=== PATIENT | female | born 1955 | race Caucasian/White ===

== ENCOUNTER 2017-09-14 10:19 | Emergency (ER) | payer BC ==
[2017-09-14] MEDS ORDERED: NS 0.9% 1000 ML*IV.FLUID IV ONE (11:23)
[2017-09-14] MEDS ORDERED: Clindamycin 900 MG IVPREMIX(* 900 MG/50 ML SDV IV ONE (11:24)
[2017-09-14] MEDS ORDERED: Iodixanol* (CONTRAST) 320 MG/ML 100 ML SDV IV ONE (11:32)
[2017-09-14 11:51] LABS: ABS Basophils 0 10^3/ul (0-0.2); ABS Eosinophils 0.1 10^3/ul (0-0.6); ABS Lymphocytes 0.2 10^3/ul (1.0-4.8); ABS Monocytes 0.6 10^3/ul (0-0.8); ABS Neutrophils 4.6 10^3/ul (1.5-7.7); ABS Nucleated RBC 0 10^3/ul; Eosinophil % 1.5 % (0-6); Hematocrit 28 % (35-47); Hemoglobin 9.4 g/dl (12.0-16.0); Lymphocyte % 2.9 % (25-47); Mean Corpuscular HGB Conc 34 g/dl (31-36); Mean Corpuscular Hemoglobin 30 pg (27-31); Mean Corpuscular Volume 89 fL (80-97); Mean Platelet Volume 6.9 um3 (7.4-10.4); Nucleated Red Blood Cells % 0; Platelet Count 245 10^3/ul (150-450); Red Blood Count 3.13 10^6/ul (4.00-5.40); Red Cell Distribution Width 16 % (10.5-15); White Blood Count 5.5 10^3/ul (3.5-10.8)
--- NOTE | 2017-09-14 12:08 | RAD ---
HISTORY: left neck swelling COMPARISONS: None TECHNIQUE: Multiple contiguous axial CT scans were obtained of the neck after the administration of nonionic intravenous contrast, with coronal and sagittal multiplanar reformations. FINDINGS: BRAIN AND ORBITS: Incidentally noted is a scleral calcification along the right superior temporal globe. PARANASAL SINUSES: There is a mucous retention cyst versus polypoid mucosal thickening of the left maxillary sinus. SALIVARY GLANDS: There is mild asymmetry of the left parotid gland which is enlarged compared to the right. There is no appreciable salivary ductal dilatation. There is stranding of adjacent fat with thickening of the platysma fascia. NASAL CAVITY/NASOPHARYNX: The nasal cavity and nasopharynx are normal. ORAL CAVITY/OROPHARYNX: There is mucosal thickening of the base of the tongue in the lateral oropharyngeal mucosa. There is inflammatory change of the perinephric space on the left. LARYNGEAL APPARATUS/HYPOPHARYNX: The laryngeal apparatus and hypopharynx are normal. UPPER AIRWAY/UPPER ESOPHAGUS: The visualized upper airway and esophagus are normal. LUNG APICES: The lung apices are clear. THYROID GLAND: The thyroid gland is normal. LYMPH NODES: There are scattered small, less than 1 cm short axis, lymph nodes noted along the anterior and posterior cervical chain. There is no lymphadenopathy by size criteria. VASCULATURE: There is calcification of the carotid bifurcations. BONES AND SOFT TISSUES: Degenerative changes are noted. As noted above, there is thickening of the platysma fascia along the left face with stranding of the subcutis fat. OTHER: None. IMPRESSION: 1. THERE IS ASYMMETRIC ENLARGEMENT OF THE LEFT PAROTID GLAND WITH ADJACENT INFLAMMATORY CHANGE CONSISTENT WITH CELLULITIS, POSSIBLY SECONDARY TO PAROTIDITIS. THE EDEMA EXTENDS INTO THE PARAPHARYNGEAL SPACE AND LATERAL OROPHARYNGEAL MUCOSA. THERE IS NO LOCULATED FLUID COLLECTION TO SUGGEST ABSCESS. 2. THERE ARE SCATTERED SUBCENTIMETER SHORT AXIS LYMPH NODES WITHOUT LYMPHADENOPATHY BY SIZE CRITERIA. 3. INCIDENTALLY NOTED IS SCLERAL CALCIFICATION OF THE RIGHT GLOBE.
[2017-09-14 12:10] LABS: INR 1.06 (0.77-1.02)
[2017-09-14 12:16] LABS: EGFR Non-African American 43.5 (>60)
[2017-09-14] MEDS ORDERED: Ciprofloxacin 400MG IVPREMIX(* 400 MG/200 ML BAG IVPB ONE (13:17)
[2017-09-14] MEDS ORDERED: Vancomycin(*) 1,000 MG in NS 0.9% 250 ML* 250 ML IVPB ONE (13:18)
[2017-09-14] MEDS ORDERED: HYDROcodone/ACETAMIN 5-325 MG* 1 TAB PO ONE (14:23)
[2017-09-14] MEDS ORDERED: Ciprofloxacin TAB* 500 MG PO ONE (15:10)
--- NOTE | 2017-09-14 15:15 | ED ---
Tim Beck Simon scribed for Juan José Ruth MD on 09/14/17 at 1238 . Neck Pain - HPI Summary HPI Summary: This patient is a 62 year old F presenting to [facility] accompanied by daughter with a chief complaint of left sided neck swelling since yesterday afternoon. Endorses pain in swollen area, dysphagia, and nausea. She denies fever, chills, ear pain, and abd pain, or any recent CP. Her PCP is Dr. Bartlett, Dr. Long is her oncologist doing her stomach radiation therapy. PMHx salivary gland infections. - History of Current Complaint Chief Complaint: EDNeckComplaint Stated Complaint: FACIAL SWELLING Time Seen by Provider: 09/14/17 11:11 Hx Obtained From: Patient Onset/Duration Of Injury/Symptoms: Hours Mechanism Of Injury: No Known Trauma Timing: Constant, Lasting Hours Onset/Duration: Started hours ago Severity Initially: Moderate Severity Currently: Moderate Pain Intensity: 7 Pain Scale Used: 0-10 Numeric Aggravating Factors: Other: - swallowing Alleviating Factors: Nothing Associated Signs & Symptoms: Positive: Swelling, Redness. Negative: Fever - Allergies/Home Medications Allergies/Adverse Reactions: Allergies Allergy/AdvReac Type Severity Reaction Status Date / Time No Known Allergies Allergy Verified 09/14/17 10:24 Home Medications: Home Medications Atorvastatin* [Lipitor*] 40 mg PO DAILY 09/14/17 [History Confirmed 09/14/17] LORazepam TAB(*) [Ativan 0.5 MG TAB (*)] 0.5 mg PO Q8H PRN 09/14/17 [History Confirmed 09/14/17] Metoprolol Tartrate TAB* [Lopressor TAB*] 50 mg PO BID 09/14/17 [History Confirmed 09/14/17] Nortriptyline CAP* [Pamelor CAP*] 50 mg PO DAILY 09/14/17 [History Confirmed ] Omeprazole CAP* [Prilosec CAP* 20 MG] 20 mg PO DAILY 09/14/17 [History Confirmed 09/14/17] Prochlorperazine TAB* [Compazine Tab*] 10 mg PO Q6H PRN 09/14/17 [History Confirmed 09/14/17] Verapamil SR TAB* [Calan Sr TAB*] 240 mg PO DAILY 09/14/17 [History Confirmed ] PMH/Surg Hx/FS Hx/Imm Hx Respiratory History: Denies: Other Respiratory Problems/Disorders GI History: Reports: Other GI Disorders - Sarcoma lower abd History: Reports: Other Problems/Disorders - bladder cancer, ovarian cancer Sensory History: Denies: Hx Legally Blind, Hx Deafness Opthamlomology History: Denies: Hx Legally Blind EENT History: Denies: Hx Deafness - Cancer History Cancer Type, 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 Negative: Dental Pain, Ear Ache Negative: Chest Pain Positive: Nausea. Negative: Abdominal Pain Positive: Edema - left mandible below angle., Other - left mandible All Other Systems Reviewed And Are Negative: Yes Physical Exam - Summary Physical Exam Summary: General: ill-appearing, no pain distress Skin: warm, color reflects adequate perfusion, dry Head: normal Eyes: EOMI, PHILLIP ENT: left ear cerumen impaction, right TM normal, oropharynx open, uvula midline , teeth non-tender Neck: swelling below angle of left mandible, firm and TTP with some overlying erythema Respiratory: CTA, breath sounds present Cardiovascular: tachycardic Abdomen: soft, nontender Bowel: present Musculoskeletal: normal, strength/ROM intact Neurological: sensory/motor intact, A&O x3 Psychological: affect/mood appropriate Triage Information Reviewed: Yes Vital Signs On Initial Exam: Initial Vitals Temp Pulse Resp BP Pulse Ox 98.7 F 116 16 123/70 98 09/14/17 10:20 09/14/17 10:20 09/14/17 10:20 09/14/17 10:20 09/14/17 10:20 Vital Signs Reviewed: Yes Diagnostics - Vital Signs Vital Signs Temp Pulse Resp BP Pulse Ox 09/14/17 10:20 98.7 F 116 16 123/70 98 - Laboratory Lab Results: Lab Results 09/14/17 09/14/17 09/14/17 Range/Units 11:36 11:36 11:36 WBC 5.5 (3.5-10.8) 10^3/ul RBC 3.13 L (4.00-5.40) 10^6/ul Hgb 9.4 L (12.0-16.0) g/dl Hct 28 L (35-47) % MCV 89 (80-97) fL MCH 30 (27-31) pg MCHC 34 (31-36) g/dl RDW 16 H (10.5-15) % Plt Count 245 (150-450) 10^3/ul MPV 6.9 L (7.4-10.4) um3 Neut % (Auto) 83.8 H (38-83) % Lymph % (Auto) 2.9 L (25-47) % Lynn % (Auto) 11.5 H (0-7) % Eos % (Auto) 1.5 (0-6) % Baso % (Auto) 0.3 (0-2) % Absolute Neuts (auto) 4.6 (1.5-7.7) 10^3/ul Absolute Lymphs (auto) 0.2 L (1.0-4.8) 10^3/ul Absolute Monos (auto) 0.6 (0-0.8) 10^3/ul Absolute Eos (auto) 0.1 (0-0.6) 10^3/ul Absolute Basos (auto) 0 (0-0.2) 10^3/ul Absolute Nucleated RBC 0 10^3/ul Nucleated RBC % 0 INR (Anticoag Therapy) 1.06 H (0.77-1.02) APTT 26.7 (26.0-36.3) seconds Sodium 133 L (135-145) mmol/L Potassium 3.8 (3.5-5.0) mmol/L Chloride 102 (101-111) mmol/L Carbon Dioxide 22 (22-32) mmol/L Anion Gap 9 (2-11) mmol/L BUN 21 (6-24) mg/dL Creatinine 1.24 H (0.51-0.95) mg/dL Est GFR ( Amer) 56.0 (>60) Est GFR (Non-Af Amer) 43.5 (>60) BUN/Creatinine Ratio 16.9 (8-20) Glucose 108 H (70-100) mg/dL Lactic Acid (0.5-2.0) mmol/L Calcium 8.7 (8.6-10.3) mg/dL Total Bilirubin 0.20 (0.2-1.0) mg/dL AST 8 L (13-39) U/L ALT 5 L (7-52) U/L Alkaline Phosphatase 82 (34-104) U/L Troponin I 0.08 H* (<0.04) ng/mL C-Reactive Protein 84.41 H (<8.01) mg/L B-Natriuretic Peptide ( - 100) pg/mL Total Protein 5.7 L (6.4-8.9) g/dL Albumin 2.7 L (3.2-5.2) g/dL Globulin 3.0 (2-4) g/dL Albumin/Globulin Ratio 0.9 L (1-3) 09/14/17 09/14/17 09/14/17 Range/Units 11:36 11:36 14:03 WBC (3.5-10.8) 10^3/ul RBC (4.00-5.40) 10^6/ul Hgb (12.0-16.0) g/dl Hct (35-47) % MCV (80-97) fL MCH (27-31) pg MCHC (31-36) g/dl RDW (10.5-15) % Plt Count (150-450) 10^3/ul MPV (7.4-10.4) um3 Neut % (Auto) (38-83) % Lymph % (Auto) (25-47) % Lynn % (Auto) (0-7) % Eos % (Auto) (0-6) % Baso % (Auto) (0-2) % Absolute Neuts (auto) (1.5-7.7) 10^3/ul Absolute Lymphs (auto) (1.0-4.8) 10^3/ul Absolute Monos (auto) (0-0.8) 10^3/ul Absolute Eos (auto) (0-0.6) 10^3/ul Absolute Basos (auto) (0-0.2) 10^3/ul Absolute Nucleated RBC 10^3/ul Nucleated RBC % INR (Anticoag Therapy) (0.77-1.02) APTT (26.0-36.3) seconds Sodium (135-145) mmol/L Potassium (3.5-5.0) mmol/L Chloride (101-111) mmol/L Carbon Dioxide (22-32) mmol/L Anion Gap (2-11) mmol/L BUN (6-24) mg/dL Creatinine (0.51-0.95) mg/dL Est GFR ( Amer) (>60) Est GFR (Non-Af Amer) (>60) BUN/Creatinine Ratio (8-20) Glucose (70-100) mg/dL Lactic Acid 0.7 (0.5-2.0) mmol/L Calcium (8.6-10.3) mg/dL Total Bilirubin (0.2-1.0) mg/dL AST (13-39) U/L ALT (7-52) U/L Alkaline Phosphatase (34-104) U/L Troponin I 0.07 H* (<0.04) ng/mL C-Reactive Protein (<8.01) mg/L B-Natriuretic Peptide 71 ( - 100) pg/mL Total Protein (6.4-8.9) g/dL Albumin (3.2-5.2) g/dL Globulin (2-4) g/dL Albumin/Globulin Ratio (1-3) Result Diagrams: 09/14/17 11:36 09/14/17 11:36 Lab Statement: Any lab studies that have been ordered have been reviewed, and results considered in the medical decision making process. - CT neck CT Interpretation: Positive (See Comments) CT Interpretation Completed By: Radiologist - 1. THERE IS ASYMMETRIC ENLARGEMENT OF THE LEFT PAROTID GLAND WITH ADJACENT INFLAMMATORY CHANGE CONSISTENT WITH CELLULITIS, POSSIBLY SECONDARY TO PAROTIDITIS. THE EDEMA EXTENDS INTO THE PARAPHARYNGEAL SPACE AND LATERAL OROPHARYNGEAL MUCOSA. THERE IS NO LOCULATED FLUID COLLECTION TO SUGGEST ABSCESS. 2. THERE ARE SCATTERED SUBCENTIMETER SHORT AXIS LYMPH NODES WITHOUT LYMPHADENOPATHY BY SIZE CRITERIA. 3. INCIDENTALLY NOTED IS SCLERAL CALCIFICATION OF THE RIGHT GLOBE. Dr. Ventura has reviewed this report. - EKG 1130 Cardiac Rate: NL - 77 EKG Rhythm: Sinus Rhythm ST Segment: Normal Ectopy: None EKG Interpretation: prolonged IA 220 Re-Evaluation - Re-Evaluation First Eval Re-Evaluation Time: 13:45 Change: Unchanged Comment: re-check, asked about, pt denied any recent CP. Second Eval Re-Evaluation Time: 14:56 Change: Improved Comment: Discussed improving sx, discharge. Neck Course/Dx - Course Course Of Treatment: Medications reviewed. Allergies noted. DISCUSSED RESULT WITH THE PATIENT AND HER DAUGHTER. DENIED ANY CHEST PAIN. RECHECK TROPONIN DECREASED. DISCUSSED WITH DR TY, ENT. DISCUSSED ADMISSION [facility] OUT PATIENT. THE PATIENT PREFERS OUT PATIENT TREATMENT; SHE AGREES TO RETURN IF WORSE. - Diagnoses Provider Diagnoses: Parotitis, acute - Physician Notifications Discussed Care Of Patient With: Mani Downing Time Discussed With Above Provider: 13:39 Instructed by Provider To: Other - Discussed labs, vitals, IV abx vs PO, based on clinical picture for admit vs outpatient tx. Discharge - Sign-Out/Discharge Documenting (check all that apply): Discharge/Admit/Transfer - Discharge Plan Condition: Stable Disposition: HOME Prescriptions: Ciprofloxacin TAB* [Cipro 500 MG TAB*] 500 mg PO BID #20 tab Clindamycin HCl 450 mg PO TID #90 capsule Patient Education Materials: Sialoadenitis (ED) Referrals: Thelma Bartlett DO [Primary Care Provider] - Additional Instructions: FOLLOW UP WITH YOUR DOCTOR. RETURN TO THE EMERGENCY DEPARTMENT FOR ANY WORSENING OF YOUR CONDITION; FEVER, YOU FEEL ILL OR QUESTIONS OR CONCERNS. - Billing Disposition and Condition Condition: STABLE Disposition: Home The documentation as recorded by the Tim serna Simon accurately reflects the service I personally performed and the decisions made by me, Juan José Ruth MD.
[2017-09-14 15:26] VITALS: BP 123/51
== END 2017-09-14 15:26 | disposition home or self-care (01) ==
LOC: ED 10:19
DX: K11.21 Acute sialoadenitis (principal); R11.0 Nausea; H61.22 Impacted cerumen, left ear; R00.0 Tachycardia, unspecified; C48.0 Malignant neoplasm of retroperitoneum; C67.9 Malignant neoplasm of bladder, unspecified; C56.9 Malignant neoplasm of unspecified ovary; Z90.710 Acquired absence of both cervix and uterus; Z82.49 Family history of ischemic heart disease and other diseases of the circulatory system; Z80.7 Family history of other malignant neoplasms of lymphoid, hematopoietic and related tissues
CPT/HCPCS: 36415; 70491; 80053; 83605; 83880; 84484; 85025; 85610; 85730; 86140; 87040; 93005; 96365; 96366; 99283; A9270-GY; J3370; Q9967